=== PATIENT | male | born 1990 | race Caucasian/White ===

== ENCOUNTER 2022-12-29 13:12 | Emergency (ER) | payer OTHER ==
[~2022-12-29] VITALS: Ht 167.6 cm; Wt 54.4 kg
[2022-12-29 13:46] VITALS: BP 128/78
[2022-12-29] MEDS ORDERED: GUAI-671 PO (14:27)
--- NOTE | 2022-12-29 14:41 | NUR ---
Patient discharged to home in stable condition. Written and verbal after care instructions given. Patient verbalizes understanding of instruction.
--- NOTE | 2022-12-29 14:43 | NUR ---
Patient discharged to home in stable condition. Written and verbal after care instructions given. Patient verbalizes understanding of instruction.
== END 2022-12-29 14:44 | disposition home or self-care (01) ==
LOC: ER 13:17
DX: J20.9 Acute bronchitis, unspecified (principal); Z60.2 Problems related to living alone

== ENCOUNTER 2023-05-23 12:40 | Emergency (ER) | payer OTHER ==
[~2023-05-23] VITALS: Ht 167.6 cm; Wt 59.0 kg
[~2023-05-23 12:40] MED LIST: GUAI-671 PO
[2023-05-23] MEDS ORDERED: IBUP-1953 PO (15:17)
[2023-05-23 15:48] VITALS: BP 105/64; TEMP 98.2; O2SAT 97
== END 2023-05-23 15:30 | disposition home or self-care (01) ==
LOC: ER 12:40
DX: S83.014A Lateral dislocation of right patella, initial encounter (principal); Z60.2 Problems related to living alone; W03.XXXA Other fall on same level due to collision with another person, initial encounter; Y93.89 Activity, other specified; Y92.89 Other specified places as the place of occurrence of the external cause; Y99.8 Other external cause status
CPT/HCPCS: 73552; 73564-TC

== ENCOUNTER 2024-01-17 19:32 | Emergency (ER) | payer OTHER ==
[~2024-01-17] VITALS: Ht 167.6 cm; Wt 79.4 kg
[~2024-01-17 19:32] MED LIST changes: +IBUP-1953 PO
[2024-01-17] MEDS ORDERED: BICT1TAB PO (20:58)
[2024-01-17 21:05] LABS: BASOPHILS # (AUTO) 0.1 K/uL (0.0-0.2); BASOPHILS % (AUTO) 0.8 % (0.0-2.0); EOSINOPHILS # (AUTO) 0.4 K/uL (0.0-0.7); EOSINOPHILS % (AUTO) 6.5 % (0.0-6.0); HEMATOCRIT 48 % (39-51); HEMOGLOBIN 16.4 g/dL (13.5-17.5); LYMPHOCYTES # (AUTO) 2.1 K/uL (0.8-4.8); LYMPHOCYTES % (AUTO) 31.9 % (20.0-44.0); MEAN CORPUSCULAR HEMOGLOBIN 31 PG (26.0-33.0); MEAN CORPUSCULAR HGB CONC 35 g/dl (31.0-36.0); MEAN CORPUSCULAR VOLUME 90 fL (80-96); MONOCYTES # (AUTO) 0.5 K/uL (0.1-1.30); MONOCYTES % (AUTO) 8.2 % (2.0-12.0); NEUTROPHILS # (AUTO) 3.4 K/uL (1.8-8.9); NEUTROPHILS % (AUTO) 52.6 % (43.0-81.0); PLATELET COUNT (AUTO) 224 K/uL (150-450); RED BLOOD CELL COUNT(AUTO) 5.28 MIL/uL (4.5-6.0); WHITE BLOOD COUNT (AUTO) 6.5 K/uL (4.3-11.0)
[2024-01-17 21:11] LABS: CALCIUM, SERUM 9.9 mg/dL (8.5-10.1); CREATININE 0.9 mg/dL (0.6-1.3); POTASSIUM 3.6 mmol/L (3.5-5.1)
[2024-01-17 21:22] LABS: ALBUMIN 4.7 g/dL (3.4-5.0); BILIRUBIN,DIRECT 0.2 mg/dL (0.0-0.2); BILIRUBIN,TOTAL 0.7 mg/dL (0.2-1.0); TOTAL PROTEIN, SERUM 8.5 g/dL (6.4-8.2)
[2024-01-17 22:29] VITALS: BP 132/75; TEMP 98; O2SAT 100
[2024-01-18] MEDS ORDERED: BICT1TAB PO (14:08)
[2024-01-18 14:22] LABS: HIV-1 p24 ANTIGEN NON REACTIVE (NONREACTIVE); HIV-1/2 ANTIBODY NON REACTIVE (NONREACTIVE)
[2024-01-19 07:08] LABS: RAPID PLASMA REAGIN QUAL. Non Reactive (Non Reactive)
[2024-01-20 19:06] LABS: CHLAMYDIA TRACHOMATIS NAA Negative (Negative); NEISSERIA GONORRHOEAE NAA Negative (Negative)
== END 2024-01-17 22:29 | disposition home or self-care (01) ==
LOC: ER 19:38
DX: A64 Unspecified sexually transmitted disease (principal); R10.2 Pelvic and perineal pain; Z60.2 Problems related to living alone
CPT/HCPCS: 36415; 80048-TC; 80076-TC; 82105; 84702-TC; 85025-TC; 86592; 86593; 87491; 87591; 87806